=== PATIENT | male | born 1960 | race Caucasian/White ===

== ENCOUNTER 2018-01-01 12:41 | Inpatient (IN) | payer BC, OTHER ==
[~2018-01-01] VITALS: Ht 175.3 cm; Wt 93.5 kg
[~2018-01-01 12:41] MED LIST: LEVAQUIN500 MG PO; LISINOPRIL-HCT1 EAC1 PO; METOPROLOL TART50 MG PO; METRONIDAZOLE500 MG PO
[2018-01-01] MEDS ORDERED: SODIUM CHLORIDE 0.9% 1000ML 1,000 ML IV SCH ×2 (13:30→17:43)
[2018-01-01 13:35] LABS: BASOPHILS # (AUTO) 0.1 (0.0-0.1); BASOPHILS % 0.3 % (0.0-1.0); HEMATOCRIT 45.2 % (38.2-49.6); HEMOGLOBIN 15.3 g/dL (14.0-18.0); LYMPHOCYTES # (AUTO) 1.2 (1.0-3.2); LYMPHOCYTES % 5.1 % (18.0-39.1); MEAN CORPUSCULAR HEMOGLOBIN 29.4 pg (28-32); MEAN CORPUSCULAR HGB CONC 33.8 g/dL (31-35); MEAN CORPUSCULAR VOLUME 86.9 fL (81-99); MONOCYTES # (AUTO) 2.2 (0.2-0.8); MONOCYTES % 9.1 % (4.4-11.3); NEUTROPHILS % 83.8 % (38.7-80.0); PLATELET COUNT 160 x10e3/uL (140-360); RED CELL DISTRIBUTION WIDTH 14.5 % (11.7-14.4)
[2018-01-01 13:45] LABS: INR 1.3; PROTHROMBIN TIME 15.2 seconds (11.9-14.5)
[2018-01-01 13:46] LABS: PARTIAL THROMBOPLASTIN TIME 31.1 seconds (23.8-35.5)
[2018-01-01] MEDS ORDERED: KETOROLAC TROMETHAMINE 30 MG/ML VIAL IV ONE (14:57)
[2018-01-01] MEDS ORDERED: CEFTRIAXONE SOD 1 GM VIAL IV ONE (15:00)
[2018-01-01 15:08] LABS: CLARITY,URINE CLEAR (CLEAR); COLOR,URINE YELLOW (YELLOW)
[2018-01-01 15:09] LABS: BILIRUBIN,URINE NEGATIVE (NEGATIVE); KETONES,URINE NEGATIVE (NEGATIVE); LEUKOCYTE ESTERASE ,URINE NEGATIVE (NEGATIVE); NITRITE,URINE NEGATIVE (NEGATIVE); PROTEIN,URINE DIPSTICK 1+ (NEGATIVE); URINE UROBILINOGEN 0.2 mg/dL (0.2 - 1)
[2018-01-01] MEDS: SODIUM CHLORIDE 0.9% 1000ML 1,000 ML IV SCH (15:10)
[2018-01-01 15:13] LABS: ALBUMIN 3.3 g/dL (3.5-5.0); ALBUMIN/GLOBULIN RATIO 0.9 (0.8-2.0); ANION GAP 10.9 mmol/L (8-16); CALCIUM 10.1 mg/dL (8.4-10.2); CREATININE, SERUM 1.78 mg/dL (0.72-1.25); POTASSIUM 3.9 mmol/L (3.5-5.1)
[2018-01-01 15:23] LABS: BACTERIA,URINE FEW /HPF; WBC,URINE (MAN) >50 /HPF (0-5)
[2018-01-01 15:24] LABS: EPITHELIAL CELLS,URINE FEW /LPF; TRANSITIONAL EPI CELLS,URINE MODERATE
[2018-01-01] MEDS ORDERED: ACETAMINOPHEN 1000 MG/100 ML IV STA (15:27)
[2018-01-01] MEDS ORDERED: DIATRIZOATE MEGL/DIATRIZOA SOD 30 ML BTL PO ONE (16:00)
[2018-01-01] MEDS: CEFTRIAXONE SOD 1 GM VIAL IV SCH ×2 (16:20→16:43)
[2018-01-01] MEDS ORDERED: SODIUM CHLORIDE 0.9% 50ML 50 ML ONE (16:39)
--- NOTE | 2018-01-01 16:40 | History and Physical ---
CHIEF COMPLAINT: Flank pain. HISTORY OF PRESENT ILLNESS: This is a 57-year-old white man who presents to [facility] Emergency Room with a 1-day history of worsening bilateral flank pain. The patient states he does have a history of kidney stones. The patient saw his primary care physician, namely Dr. Hunt, yesterday and was prescribed oral ciprofloxacin and given 1 injection of ceftriaxone intramuscularly. The patient states he came to the emergency room today because the pain worsened, and he is experiencing nausea. In the emergency room, the patient was found to have a white blood cell count of 23,800 with 83% segmented neutrophils. The patient's BUN and creatinine in the emergency room were 33 and 1.78 respectively. Lactic acid level was normal at 9.3. Urinalysis revealed orange urine with 1+ protein, trace blood, 6-10 red blood cells per high-power field, and greater than 50 white blood cells per high-power field. The patient was admitted for further evaluation and treatment. REVIEW OF SYSTEMS GENERAL: No fever or chills. Weight has been stable. HEENT: No headache. No vision changes. CARDIOVASCULAR/RESPIRATORY: No chest pain. No shortness of breath or cough. GI: Intense nausea since yesterday. No vomiting or diarrhea. : Bilateral flank pain consistent with kidney stone pain since yesterday. Urine has been dark according to the patient, but he denies any gross hematuria. NEUROMUSCULAR: Complains of intense bilateral flank pain since yesterday. ALLERGIES: PENICILLIN. FAMILY HISTORY: Father had kidney stones. PAST MEDICAL HISTORY 1. Hypertension. 2. Kidney stones. SURGICAL HISTORY 1. Inguinal hernia repair. 2. Umbilical hernia repair. MEDICATIONS 1. Lisinopril/hydrochlorothiazide 10 and 12.5 one daily. 2. Metoprolol tartrate 50 mg daily. SOCIAL HISTORY: This man is and lives with his . 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 No history of tobacco use. Drinks alcohol rarely. PHYSICAL EXAMINATION GENERAL: He is awake, alert, fully oriented, in mild distress. He is very pleasant and cooperative with exam. His is at the bedside. VITAL SIGNS: Blood pressure 90/50, heart rate 100, respiratory rate 18, temperature 100.4. Oxygen saturation is 98% on room air. Height is 5 feet 9 inches, and weight is 203 pounds. Calculated body mass index is 30. INTEGUMENT: Skin is warm and dry. No pallor, jaundice or diaphoresis. HEENT: Anicteric sclerae with dry mucous membranes. NECK: Supple. CARDIOVASCULAR: Tachycardic heart rate. Regular rhythm. LUNGS: No rales. No rhonchi. No wheezing. ABDOMEN: Obese. Soft. SPINE/TORSO: The patient has costovertebral angle tenderness bilaterally. EXTREMITIES: No edema or deformity. NEUROLOGIC: Intact. DIAGNOSES 1. Sepsis secondary to urinary tract infection. 2. History of kidney stones. 3. Acute renal failure. 4. Hypertensive heart disease. PLAN 1. Will order a CT of the abdomen and pelvis without contrast to assess for hydronephrosis or any obstructive nephrolithiasis. 2. Consult urology. 3. Continue intravenous fluids. 4. Follow renal function. 5. Will follow urine cultures. 6. Will start intravenous ceftriaxone. 7. Will hold lisinopril. I spent 45 minutes in the care of this patient. Job#: [id number]
[2018-01-01] MEDS ORDERED: HYDROCORTISONE SOD SUCCINATE 100 MG VIAL IV ONE (17:15)
--- NOTE | 2018-01-01 17:18 | Diagnostic Imaging Report ---
EXAMINATION: CT of the abdomen and pelvis without contrast. TECHNIQUE: Helical CT images of the abdomen and pelvis were performed from the lung bases to the lesser trochanters. No intravenous contrast was given per renal stone protocol. Coronal and sagittal reformatted images were obtained. COMPARISON: None. CLINICAL HISTORY:Renal insufficiency DISCUSSION: ABSENCE OF INTRAVENOUS CONTRAST DECREASES SENSITIVITY FOR DETECTION OF FOCAL LESIONS AND VASCULAR PATHOLOGY. ABDOMEN/PELVIS: LOWER THORAX: Unremarkable. HEPATOBILIARY:No focal hepatic lesions. No biliary ductal dilation. The gallbladder is normal. SPLEEN: 1 cm splenic hypodensity. PANCREAS: No focal masses or ductal dilatation. ADRENALS: 1 cm benign lipid rich adenoma on the left. KIDNEYS/URETERS: No hydronephrosis, stones, or solid mass lesions. Simple cyst inferior right kidney. PELVIC ORGANS/BLADDER: The bladder is normal. PERITONEUM/RETROPERITONEUM: No free air or fluid. LYMPH NODES: No intra-abdominal,retroperitoneal, pelvic or inguinal lymphadenopathy. VESSELS: The celiac trunk,superior and inferior mesenteric and bilateral renal arteries are patent The portal, superior mesenteric and splenic veins are patent. GI TRACT: No distention or wall thickening. BONES AND SOFT TISSUES: No bony destructive lesions. No soft tissue abnormalities. IMPRESSION: No renal calculi or obstruction. Signed by: Dr. Hardy Ferris M.D. on 01/01/2018 5:15 PM
[2018-01-01] MEDS ORDERED: ONDANSETRON HCL INJ 2 MG/ML VIAL IV PRN (17:45)
[2018-01-01] MEDS ORDERED: LISINOPRIL10 MG PO (18:26)
[2018-01-01 18:48] VITALS: BP 99/67
[2018-01-01 20:05] VITALS: BP 99/67
[2018-01-01] MEDS ORDERED: HYDROCODONE/APAP 5MG-325MG TAB PO PRN (20:30)
[2018-01-01 21:00] VITALS: BP 91/60
[2018-01-02] VITALS (8 sets, daily range): BP systolic 103–114; BP diastolic 66–78
--- NOTE | 2018-01-02 01:51 | Consultation ---
DATE OF CONSULTATION: UROLOGY CONSULTATION REASON FOR CONSULTATION: Possible urosepsis. HISTORY OF PRESENT ILLNESS: Roman Mohan is a 57-year-old man who has never seen a urologist. The patient had a previous history of a kidney stone, was given pain medicine in an emergency room and he presumably passed his stone, which he never retrieved. The patient had dysuria yesterday, today he had fever and malaise, reported to the emergency room, was evaluated and subsequently admitted. The patient also reported having seen gross hematuria. PAST MEDICAL AND SURGICAL HISTORY: 1. Status post hydrocele repair as a child. 2. Status post right inguinal herniorrhaphy at 18 years old. 3. Status post umbilical herniorrhaphy. 4. Status post tonsillectomy. 5. Hypertension. ALLERGIES: PENICILLIN. SOCIAL HISTORY: The patient denies smoking, ethanol, and drug use. The patient works in HR department at a desk job. FAMILY HISTORY: Noncontributory to the active urological problems. REVIEW OF SYSTEMS: As consistent with above history of present illness and past medical history, is otherwise negative for all other systems except for bilateral flank pain. PHYSICAL EXAMINATION: GENERAL: Healthy-appearing 57-year-old man, lying in bed, in no apparent distress. VITAL SIGNS: He is currently afebrile. Vital signs are currently stable. His temperature maximum is 100.4 and his vital signs have been significant for tachycardia and some hypotension, which I am deferring to the admitting physician. ABDOMEN: Soft, nondistended, nontender without costovertebral angle tenderness. Kidneys are not palpable without hepatosplenomegaly. No obvious evidence of hernia. He has scar in the right inguinal region as well as in the periumbilical region. GENITOURINARY: Patient has normal circumcised male phallus with normal meatus without any lesion. Testes are descended bilaterally, they are nontender and without any mass. For the remaining physical examination and review of systems, please refer to the admission history and physical on the chart. LABORATORY STUDIES: White blood cell count is elevated at 23,890; hemoglobin is 15.3; platelets are 160,000. Patient's sodium is slightly low at 135. Patient's creatinine is elevated at 178 and I am assuming this is an acute finding. PT is slightly elevated at 15.2. Urinalysis significant for microhematuria as well as pyuria with few bacteria. CT scan of the abdomen and pelvis revealed a 1 cm benign lipid-rich adenoma on the left hand side and a simple cyst in the inferior right kidney, no stones were identified. ASSESSMENT: 1. Urinary tract infection. 2. History of urolithiasis. 3. Dysuria. 4. Hematuria. 5. Left adrenal adenoma. 6. Right renal cyst. 7. Leukocytosis. 8. Hyponatremia. 9. Microscopic hematuria. PLAN: 1. Agree with the current choice of antibiotics at the present time. 2. The admitting physician has ordered followup laboratory studies for tomorrow. 3. Urine and blood cultures are pending, and we will follow up on those results. 4. I have deferred the hypotension and tachycardia to patient's admitting physician. Thank you very much for involving us in the care of your patient. We will be happy to follow him along with you as well as an outpatient. Job#: [id number] cc:JOHNATHAN ALFARO DO
[2018-01-02] MEDS: CEFTRIAXONE SOD 1 GM VIAL IV SCH ×2 (03:06→16:01)
[2018-01-02 07:46] LABS: BASOPHILS % 0.2 % (0.0-1.0); EOSINOPHILS % 0.2 % (0.0-6.0); HEMATOCRIT 44.8 % (38.2-49.6); LYMPHOCYTES # (AUTO) 1.5 (1.0-3.2); MEAN CORPUSCULAR HEMOGLOBIN 29.1 pg (28-32); MEAN CORPUSCULAR HGB CONC 33.5 g/dL (31-35); MONOCYTES # (AUTO) 1.4 (0.2-0.8); MONOCYTES % 7.7 % (4.4-11.3); NEUTROPHILS # (AUTO) 15.1 (2.1-6.9); PLATELET COUNT 174 x10e3/uL (140-360); RED BLOOD COUNT 5.15 x10e6/uL (4.3-5.7); RED CELL DISTRIBUTION WIDTH 14.4 % (11.7-14.4)
[2018-01-02 08:28] LABS: ALBUMIN 2.9 g/dL (3.5-5.0); ALBUMIN/GLOBULIN RATIO 0.7 (0.8-2.0); ANION GAP 12.6 mmol/L (8-16); CALCIUM 9.8 mg/dL (8.4-10.2); CREATININE, SERUM 1.5 mg/dL (0.72-1.25); POTASSIUM 3.6 mmol/L (3.5-5.1)
[2018-01-02] MEDS: SODIUM CHLORIDE 0.9% 1000ML 1,000 ML IV SCH ×2 (10:00→20:32)
[2018-01-02] MEDS ORDERED: PROMETHAZINE 25MG/ NS 50ML (IV) IV PRN (12:45)
[2018-01-02] MEDS ORDERED: LOPERAMIDE HCL 2 MG CAP PO ONE (12:45)
[2018-01-03 00:45] VITALS: BP 103/71
[2018-01-03 04:00] VITALS: BP 105/69
[2018-01-03] MEDS: CEFTRIAXONE SOD 1 GM VIAL IV SCH (04:03)
[2018-01-03] MEDS: SODIUM CHLORIDE 0.9% 1000ML 1,000 ML IV SCH (05:34)
[2018-01-03 07:25] LABS: BASOPHILS # (AUTO) 0.1 (0.0-0.1); BASOPHILS % 0.5 % (0.0-1.0); EOSINOPHILS # (AUTO) 0.1 (0.0-0.4); EOSINOPHILS % 0.5 % (0.0-6.0); LYMPHOCYTES # (AUTO) 0.9 (1.0-3.2); LYMPHOCYTES % 9.1 % (18.0-39.1); MEAN CORPUSCULAR HEMOGLOBIN 28.7 pg (28-32); MEAN CORPUSCULAR HGB CONC 32.6 g/dL (31-35); MEAN CORPUSCULAR VOLUME 88.3 fL (81-99); NEUTROPHILS # (AUTO) 7.3 (2.1-6.9); NEUTROPHILS % 77.5 % (38.7-80.0); PLATELET COUNT 200 x10e3/uL (140-360); RED BLOOD COUNT 4.87 x10e6/uL (4.3-5.7); RED CELL DISTRIBUTION WIDTH 14.6 % (11.7-14.4)
[2018-01-03 07:50] LABS: ALBUMIN 2.7 g/dL (3.5-5.0); ALBUMIN/GLOBULIN RATIO 0.8 (0.8-2.0); ANION GAP 11.4 mmol/L (8-16); CALCIUM 9.3 mg/dL (8.4-10.2); CREATININE, SERUM 1.31 mg/dL (0.72-1.25); POTASSIUM 4.4 mmol/L (3.5-5.1)
[2018-01-03 07:55] VITALS: BP 102/62
--- NOTE | 2018-01-03 10:26 | Discharge Summary ---
ADMITTING DIAGNOSES 1. Sepsis secondary to urinary tract infection. 2. History of kidney stones. 3. Acute renal failure. 4. Hypertensive heart disease. DISCHARGE DIAGNOSES 1. Sepsis secondary to urinary tract infection, resolved. 2. History of kidney stones. 3. Acute renal failure, resolving. HOSPITAL COURSE: This is a 57-year-old white man who was initially admitted to [facility] with diagnosis of sepsis secondary to urinary tract infection and acute renal failure. The patient's acute renal failure improved dramatically with intravenous fluids. The patient's sepsis also improved with intravenous antibiotics, namely ceftriaxone, which she tolerated quite well. Urine and blood cultures unfortunately did not reveal any bacterial growth, but he did receive ceftriaxone intramuscularly and oral ciprofloxacin prior to admission. The patient's white blood cell count on admission was 23,900 with 84% segmented neutrophils. On the date of discharge, the patient's white blood cell count was 9400 with 77% segmented neutrophils. During this hospitalization, the patient underwent a CT of the abdomen and pelvis without contrast that did not reveal any renal calculi or obstruction. Also, no hydronephrosis was appreciated. During this hospitalization, the patient was seen by a urologist, namely Dr. Edi Franks. The patient's brief hospitalization was unremarkable. The patient's condition on discharge was stable. DISCHARGE MEDICATIONS: Ciprofloxacin 250 mg twice a day for a total of 10 days. The patient was told to stop blood pressure medication in the form of lisinopril/hydrochlorothiazide until further notice. FOLLOWUP INSTRUCTIONS: The patient was instructed to follow up with his primary care physician, namely Dr. Johnathan Alfaro, within 1 week. The patient was told that he should not restart lisinopril/hydrochlorothiazide until his primary care physician repeats another renal function. JAMILAH SAUER MD Job#: [id number] cc:JOHNATHAN ALFARO DO
[2018-01-03 12:00] VITALS: BP 115/79
[2018-01-03] MEDS ORDERED: CEFUROXIME250 MG PO (15:01)
== END 2018-01-03 15:39 | disposition home or self-care (01) | DRG 872 ==
LOC: ER 12:41 → ERHOLD 15:45 → MED/SURG3 18:15
PROVIDERS: ADMIT Internal Medicine; ATTEND Internal Medicine
DX: A41.9 Sepsis, unspecified organism (principal); N17.9 Acute kidney failure, unspecified; N28.1 Cyst of kidney, acquired; E87.1 Hypo-osmolality and hyponatremia; I11.9 Hypertensive heart disease without heart failure; N39.0 Urinary tract infection, site not specified; R65.20 Severe sepsis without septic shock; Z87.442 Personal history of urinary calculi; D35.02 Benign neoplasm of left adrenal gland
CPT/HCPCS: 36415; 74176; 80053; 81001; 83605; 84152; 85025; 85610; 85730; 87040; 87086; J0696; J1720; J1885; J2550; J7030

== ENCOUNTER 2018-06-22 06:43 | Emergency (ER) | payer OTHER ==
[~2018-06-22] VITALS: Ht 175.3 cm; Wt 93.4 kg
[~2018-06-22 06:43] MED LIST changes: +CEFUROXIME250 MG PO; +LISINOPRIL10 MG PO
== END 2018-06-22 07:32 | disposition home or self-care (01) ==
LOC: ER 07:08
DX: I10 Essential (primary) hypertension (principal); F41.9 Anxiety disorder, unspecified
CPT/HCPCS: 99283